=== PATIENT | female | born 1935 | race Two or more races ===

== ENCOUNTER 2017-09-23 08:55 | Outpatient (CLI) | payer OTHER | END 2017-09-23 09:08 | disposition home or self-care (01) | LOC: SONOGRAMA 08:55 → MAMO-SONO 09:15 | DX: I10 Essential (primary) hypertension (principal); D63.1 Anemia in chronic kidney disease; M54.5 Low back pain; Z13.89 Encounter for screening for other disorder; Z13.220 Encounter for screening for lipoid disorders; R13.19 Other dysphagia ==

== ENCOUNTER → 2017-09-25 | Outpatient (CLI) | payer OTHER | END | disposition home or self-care (01) | LOC: NUCLEAR 11:51 | DX: M81.0 Age-related osteoporosis without current pathological fracture (principal); I10 Essential (primary) hypertension; D63.1 Anemia in chronic kidney disease; M54.5 Low back pain; Z13.89 Encounter for screening for other disorder; Z13.220 Encounter for screening for lipoid disorders; Z12.11 Encounter for screening for malignant neoplasm of colon; Z12.39 Encounter for other screening for malignant neoplasm of breast ==

== ENCOUNTER 2017-12-04 09:06 | Outpatient (CLI) | payer OTHER | END 2017-12-04 09:51 | disposition home or self-care (01) | LOC: SONOGRAMA 09:06 | DX: E04.2 Nontoxic multinodular goiter (principal) ==

== ENCOUNTER 2018-12-26 11:36 | Outpatient (CLI) | payer OTHER | END 2018-12-26 11:38 | disposition home or self-care (01) | LOC: RAD 11:36 | DX: M25.562 Pain in left knee (principal) ==

== ENCOUNTER 2019-03-18 07:52 | Outpatient (CLI) | payer OTHER | END 2019-03-18 08:06 | disposition home or self-care (01) | LOC: LAB 07:52 | DX: N39.0 Urinary tract infection, site not specified (principal); E03.8 Other specified hypothyroidism; E11.9 Type 2 diabetes mellitus without complications; R94.5 Abnormal results of liver function studies; E78.49 Other hyperlipidemia; D51.0 Vitamin B12 deficiency anemia due to intrinsic factor deficiency ==

== ENCOUNTER 2021-09-25 10:25 | Emergency (ER) | payer OTHER ==
[~2021-09-25] VITALS: Ht 162.6 cm; Wt 44.9 kg
[2021-09-25] MEDS ORDERED: ELIQUIS2.5 MG PO (10:35)
[2021-09-25] MEDS ORDERED: CARVEDILOL3.125 M1 PO (10:36)
[2021-09-25] MEDS ORDERED: FUROSEMIDE20 MG PO (10:36)
== END 2021-09-25 14:49 | disposition home or self-care (01) ==
LOC: ER 10:25
DX: U07.1 COVID-19 (principal); Z88.0 Allergy status to penicillin; Z88.2 Allergy status to sulfonamides; I10 Essential (primary) hypertension; I20.9 Angina pectoris, unspecified; I49.9 Cardiac arrhythmia, unspecified; K59.00 Constipation, unspecified

== ENCOUNTER 2021-10-07 10:46 | Emergency (ER) | payer OTHER ==
[~2021-10-07] VITALS: Ht 157.5 cm; Wt 43.1 kg
[~2021-10-07 10:46] MED LIST: CARVEDILOL3.125 M1 PO; ELIQUIS2.5 MG PO; FUROSEMIDE20 MG PO
== END 2021-10-07 18:51 | disposition home or self-care (01) ==
LOC: ER 10:46
DX: U07.1 COVID-19 (principal); Z88.0 Allergy status to penicillin; Z88.6 Allergy status to analgesic agent; Z88.1 Allergy status to other antibiotic agents; Z88.5 Allergy status to narcotic agent; I10 Essential (primary) hypertension; I49.8 Other specified cardiac arrhythmias; Z79.01 Long term (current) use of anticoagulants

== ENCOUNTER 2021-12-03 07:41 | Outpatient (CLI) | payer OTHER | END 2021-12-03 08:00 | disposition home or self-care (01) | LOC: RAD 07:41 | PROVIDERS: ATTEND Internal Medicine Gastroenterology | DX: R13.19 Other dysphagia (principal) ==

== ENCOUNTER 2022-01-25 11:00 | Outpatient (CLI) | payer OTHER | END 2022-01-25 13:55 | disposition home or self-care (01) | LOC: LAB 11:00 | DX: I27.24 Chronic thromboembolic pulmonary hypertension (principal) ==

== ENCOUNTER 2022-01-26 07:42 | Outpatient (CLI) | payer OTHER | END 2022-01-26 08:00 | disposition home or self-care (01) | LOC: TOM 07:42 | PROVIDERS: ATTEND Internal Medicine Pulmonary Disease | DX: J84.112 Idiopathic pulmonary fibrosis (principal) ==

== ENCOUNTER 2022-02-03 07:05 | Outpatient (CLI) | payer OTHER | END 2022-02-03 07:06 | disposition home or self-care (01) | LOC: NUCLEAR 07:05 | PROVIDERS: ATTEND Internal Medicine Pulmonary Disease | DX: I27.24 Chronic thromboembolic pulmonary hypertension (principal); Z88.0 Allergy status to penicillin; Z88.1 Allergy status to other antibiotic agents; Z88.5 Allergy status to narcotic agent; Z88.6 Allergy status to analgesic agent | CPT/HCPCS: 78580; A9540 ==

== ENCOUNTER 2024-08-07 07:19 | Outpatient (CLI) | payer OTHER | END 2024-08-07 07:21 | disposition home or self-care (01) | LOC: SONOGRAMA 07:19 | DX: M25.562 Pain in left knee (principal); M19.90 Unspecified osteoarthritis, unspecified site; R16.1 Splenomegaly, not elsewhere classified; N39.0 Urinary tract infection, site not specified ==